=== PATIENT | female | born 2000 | race Two or more races ===

== ENCOUNTER 2022-08-09 18:30 | Emergency (ER) | payer OTHER ==
[~2022-08-09] VITALS: Ht 152.4 cm; Wt 59.1 kg
[2022-08-09] MEDS ORDERED: ACETAMINOPHEN 325 MG TABLET PO ONE (19:00)
[2022-08-09 20:30] VITALS: BP 119/66
== END 2022-08-09 20:30 | disposition home or self-care (01) ==
LOC: EMS 18:32
DX: M62.838 Other muscle spasm (principal); Z98.890 Other specified postprocedural states
CPT/HCPCS: 71045; 99283